=== PATIENT | female | born 1985 | race Caucasian/White ===

== ENCOUNTER → 2019-05-04 | Outpatient (CLI) | payer OTHER ==
--- NOTE | 2019-05-04 13:09 | Diagnostic Imaging Report ---
PROCEDURE: MR imaging of the brain without contrast. TECHNIQUE: Multiplanar, multisequence MR imaging of the brain was performed without contrast. INDICATION: Right eye disturbances. COMPARISON: There are no prior studies available for comparison. FINDINGS: There is no mass, shift of the midline or hemorrhage to suggest an acute intracranial abnormality. There is no abnormal signal arising from the brain on the diffusion series to indicate an area of acute ischemia either. Furthermore, there is no signal abnormality arising from the periventricular white matter on the FLAIR series to indicate demyelinating disease. The ventricles are not abnormally dilated. The sella is not enlarged and the expected carotid flow voids are evident bilaterally. The orbits are symmetrical and the optic chiasm is undisturbed. The sinuses are generally clear and well aerated. The seventh and eighth nerve complexes are within normal limits. IMPRESSION: 1. There is no evidence for an acute intracranial abnormality. 2. There is no sign of a mass lesion, an area of acute infarction or demyelinating disease either. Dictated by: Dictated on workstation # [id number]
== END ==
LOC: RAD 12:23
PROVIDERS: ATTEND Nurse Practitioner Family
DX: G44.52 New daily persistent headache (NDPH) (principal); H53.8 Other visual disturbances
CPT/HCPCS: 70551